=== PATIENT | male | born 1990 | race African-American/Black ===

== ENCOUNTER 2020-11-04 01:10 | Emergency (ER) | payer OTHER ==
[~2020-11-04] VITALS: Ht 175.3 cm; Wt 68.0 kg
[2020-11-04] MEDS ORDERED: AMOXICILLIN500 M1 PO (01:50)
[2020-11-04] MEDS ORDERED: TRAMADOL 50 MG50 MG PO (01:50)
[2020-11-04 02:02] VITALS: BP 122/80
== END 2020-11-04 02:02 | disposition home or self-care (01) ==
LOC: M.ERS 01:10
DX: K04.1 Necrosis of pulp (principal); Z90.49 Acquired absence of other specified parts of digestive tract

== ENCOUNTER 2020-11-18 20:28 | Emergency (ER) | payer OTHER ==
[~2020-11-18] VITALS: Ht 172.7 cm; Wt 72.6 kg
[~2020-11-18 20:28] MED LIST: AMOXICILLIN500 M1 PO; TRAMADOL 50 MG50 MG PO
[2020-11-18 22:32] VITALS: BP 115/65
== END 2020-11-18 22:33 | disposition home or self-care (01) ==
LOC: M.ERS 20:28
DX: S70.01XA Contusion of right hip, initial encounter (principal); Z90.49 Acquired absence of other specified parts of digestive tract; W01.0XXA Fall on same level from slipping, tripping and stumbling without subsequent striking against object, initial encounter; Y93.89 Activity, other specified; Y92.89 Other specified places as the place of occurrence of the external cause; Y99.8 Other external cause status